=== PATIENT | male | born 1990 | race Caucasian/White ===

== ENCOUNTER 2018-08-16 19:01 | Emergency (ER) | payer BC, OTHER ==
[~2018-08-16] VITALS: Ht 177.8 cm; Wt 83.0 kg
--- NOTE | 2018-08-16 19:51 | NUR ---
PER REILLY CAIN, NO BLOOD CX INDICATED PRIOR TO ABX ADMIN
[2018-08-16] MEDS ORDERED: METRONIDAZOLE PMX 500MG/100ML 100 ML ONE (19:59)
[2018-08-16] MEDS ORDERED: METRONIDAZOLE PMX 500MG/100ML 100 ML IVPB ONE (20:00)
[2018-08-16] MEDS ORDERED: ONDANSETRON ODT 4 MG PO ONE (20:00)
[2018-08-16] MEDS ORDERED: SODIUM CHLORIDE FLUSH 10ML SYR IVF ONE (20:00)
[2018-08-16] MEDS ORDERED: AMPICILLIN/SULBACTAM 3 GM in SODIUM CHLORIDE 0.9% 100 ML IVPB ONE (20:00)
--- NOTE | 2018-08-16 20:01 | NUR ---
unasyn not in ED omnicell, med requested from pharmacy
[2018-08-16] MEDS ORDERED: ONDANSETRON ODT 4 MG ONE (20:09)
[2018-08-16 21:58] VITALS: BP 120/71
--- NOTE | 2018-08-16 22:10 | NUR ---
PT GIVEN DC INSTRUCTIONS AND RX. PT EDUCATED REGARDING ZOFRAN RX. PT A&O, RESPS EVEN AND UNLABORED. PT REPORTS DENTAL PAIN IMPROVED. PIV DC'D WITH TIP INTACT. PT AMB TO DC DESK WITH STEADY GAIT, NADN AT DC.
== END 2018-08-16 22:11 | disposition home or self-care (01) ==
LOC: ED 20:31
DX: K04.7 Periapical abscess without sinus (principal)
CPT/HCPCS: 96365; 96367; 99283; J0295; Q0162

== ENCOUNTER 2020-07-31 08:12 | Emergency (ER) | payer SELFPAY ==
[~2020-07-31] VITALS: Ht 177.8 cm; Wt 96.0 kg
[2020-07-31 08:15] VITALS: BP 132/83
[2020-07-31] MEDS ORDERED: HYDROcodone/APAP 5/325 TABLET ONE (08:44)
[2020-07-31] MEDS ORDERED: HYDROcodone/APAP 5/325 TABLET PO ONE (09:00)
== END 2020-07-31 09:13 | disposition home or self-care (01) ==
LOC: ED 08:30
DX: K04.7 Periapical abscess without sinus (principal); K02.9 Dental caries, unspecified; K08.89 Other specified disorders of teeth and supporting structures
CPT/HCPCS: 99283